=== PATIENT | female | born 1975 | race Hispanic/Latino ===

== ENCOUNTER 2017-04-18 18:26 | Emergency (ER) | payer SELFPAY ==
[~2017-04-18] VITALS: Ht 157.5 cm; Wt 75.9 kg
[2017-04-18 18:43] VITALS: BP 137/88; PULSE 80; RESP 16; O2SAT 99
[2017-04-18 20:42] LABS: BASOPHILS % (AUTO) 0.5 % (0-3); EOSINOPHILS % (AUTO) 1.4 % (0-5); MONOCYTES % (AUTO) 6.2 % (4-12); Mean Corpuscular Hemoglobin 31.1 pg (27.0-35.0); Mean Corpuscular Volume 89.2 fL (81-100); NEUTROPHILS % (AUTO) 61.7 % (40-74); Platelet Count 318 bil/L (150-400)
--- NOTE | 2017-04-18 20:56 | ED.REPORT ---
HPI-General Illness Date of Service Apr 18, 2017 ED Provider: Carl Marin MD A 42 year old female with a history of diabetes presents to the ED complaining of constant, sharp, mid abdominal pain that began two days ago. The pain has been persistent since that point and radiates around to her back. She rates the pain at 7/10. No notable alleviating or exacerbating factors. The pt also complains of fever, nausea, vomiting, burping, decreased appetite and chest pain that she believes is related to heartburn, though she has never had heartburn before. She denies pelvic pain, hematuria, hematochezia, black stools , diarrhea or vaginal discharge. She has taken some Mylanta, which relieved her symptoms somewhat. The pt has not taken her Metformin today because she has not eaten anything. Nursing Notes Stated Complaint: ABDOMINAL PAIN Chief Complaint: Female Abdominal Pain Nursing Notes Reviewed: Yes Allergies: Coded Allergies: No Known Allergies (Verified Allergy, Unknown, 04/18/17) General Time Seen by MD: 20:55 Chief Complaint Abdominal pain Hx Obtained From: Patient Arrived By: Walk-in Sudden in Onset?: No Onset Occurred: 2 days ago Symptom Duration: Since onset Location: : Abdomen Quality: Painful Radiation: : Back Severity: Maximum: Pain level 7 out of 10 Recent Healthcare: No recent doctor visit, No recent hospitalization Similar Sx Previous: No Past Medical History Past Medical History diabetes Past Surgical History unspecified Smoking History Unknown if Ever Smoker Social History Other Social History: Good social support Ambulatory Status Independent Review of Systems decreased appetite burping Full Review of Systems Constitutional: Reports: Fever Respiratory: Denies: Non-productive cough, Shortness of breath Cardiovascular: Reports: Chest pain GI: Reports: Abdominal pain, Nausea, Vomiting, Denies: Bloody/tarry stool, Diarrhea, Hematochezia Female: Denies: Hematuria, Pelvic pain, Vaginal discharge Musculoskeletal: Reports: Back pain Skin: Denies Rash Complete sys rev & neg: except as marked. Physical Exam Constitutional: Well-developed, well-nourished. Not diaphoretic. Head: Normocephalic and atraumatic. Mouth/Throat: Oropharynx is clear and moist. No oropharyngeal exudate. Eyes: EOM are normal. Pupils are equal, round, and reactive to light. Neck: Supple, no tracheal deviation. Cardiovascular: Normal rate, regular rhythm. Equal and intact distal pulses throughout. Pulmonary/Chest: Effort normal and breath sounds normal. No respiratory distress. Abdominal: Soft. No distension. Diffuse mild upper abdominal tenderness to palpation, no rebound or guarding. Bowel sounds present. Musculoskeletal: Range of motion grossly intact, moving all extremities. No edema or tenderness appreciated. Neurological: AOx3. Grossly nonfocal exam. Strength and sensation intact and equal to bilateral upper and lower extremities. Skin: Warm and dry, no rashes or pallor appreciated. Psychiatric: Appropriate mood and affect. Behavior appears normal. Vital Signs Vital Signs Date Time Temp Pulse Resp B/P Pulse Ox O2 Delivery O2 Flow Rate FiO2 04/19/17 00:30 69 20 128/79 99 Room Air 04/19/17 00:22 69 20 128/79 99 Room Air 04/18/17 18:43 37.2 80 16 137/88 99 Room Air Initial VS: Reviewed Interpretation & Diagnostics Lab Results Interpretation Result Diagram: 04/18/17 2030 04/18/17 2030 Test 04/18/17 20:30 04/18/17 21:04 04/18/17 21:44 White Blood Count 8.3th/mm3 (3.8-10.1) Red Blood Count 4.63mil/mm3 (3.90-5.20) Hemoglobin 14.4g/dL (12.0-15.6) Hematocrit 41.3% (35.0-46.0) Mean Corpuscular Volume 89.2fL (81-100) Mean Corpuscular Hemoglobin 31.1pg (27.0-35.0) Mean Corpuscular Hemoglobin Concent 34.9% (32.0-37.0) Red Cell Distribution Width 12.5% (12.3-15.4) Platelet Count 318bil/L (150-400) Neutrophils (%) (Auto) 61.7% (40-74) Lymphocytes (%) (Auto) 30.0% (14-46) Monocytes (%) (Auto) 6.2% (4-12) Eosinophils (%) (Auto) 1.4% (0-5) Basophils (%) (Auto) 0.5% (0-3) Prothrombin Time 9.8sec (8.1-12.5) Prothromb Time International Ratio 0.92ratio Sodium Level 137mEq/L (134-144) Potassium Level 3.9mEq/L (3.5-5.2) Chloride Level 98mEq/L (97-108) Carbon Dioxide Level 24mmol/L (18-29) Blood Urea Nitrogen 7mg/dL (6-24) Creatinine 0.35mg/dL (0.57-1.00) Estimat Glomerular Filtration Rate 295mL/min (>59) Glucose Level 322mg/dL (60-99) Lactic Acid Level 1.3mmol/L (0.4-2.0) Calcium Level 8.7mg/dL (8.5-10.1) Magnesium Level 1.9mg/dL (1.6-2.6) Total Bilirubin 0.4mg/dL (0.0-1.2) Aspartate Amino Transf (AST/SGOT) 15U/L (0-50) Alanine Aminotransferase (ALT/SGPT) 9U/L (0-32) Alkaline Phosphatase 134U/L (25-150) Total Protein 7.4g/dL (6.4-8.4) Albumin 4.0g/dL (3.4-5.0) Lipase 24U/L (13-60) Hold Benites Top Tube Received (Received) Ketones Negative (Negative) Urine Color Yellow (YELLOW) Urine Appearance Clear (CLEAR,HAZY) Urine pH 8.5 (5.0-8.0) Urine Specific Emery 1.010 (1.003-1.035) Urine Protein Negativemg/dL (NEG,TRACE) Urine Glucose (UA) 1000mg/dL (NEGATIVE) Urine Ketones Tracemg/dL (NEGATIVE) Urine Occult Blood Negative (NEGATIVE) Urine Nitrite Negative (NEGATIVE) Urine Bilirubin Negative (NEGATIVE) Urine Urobilinogen Normalmg/dL (NORMAL) Urine Leukocyte Esterase Negative (NEGATIVE) Urine RBC 0-2/hpf (0-2) Urine WBC 0-5/hpf (0-5) Urine Epithelial Cells Few/hpf (NONE-MOD) Urine Crystals None seen (NONE SEEN) Urine Bacteria Few/hpf (NONE-FEW) Urine Hyaline Casts None/lpf (NONE) Urine Granular Casts None seen (NONE SEEN) Urine Waxy Casts None seen (NONE SEEN) Urine Red Blood Cell Casts None seen (NONE SEEN) Urine White Blood Cell Casts None seen (NONE SEEN) Urine Mucus None seen (None Seen) Urine Trichomonas None seen (NONE SEEN) Urine Yeast Few (NONE SEEN) Urinalysis Comment None Urine Culture Reflexed Not indicated Hold Urine Received (Received) CT Abd / Pelvis Interpretation CONCLUSION: 1. Normal appendix. No free air, bowel obstruction, or gross intestinal inflammation. 2. Mild urinary bladder wall thickening is likely related to underdistention. Correlate with urinalysis if clinically warranted. Normal appearance of the kidneys. 3. Fatty liver. Small fat-containing umbilical hernia. Interpretation / Wet Read by: Interpret - Radiologist Re-Eval/Medical Decision Med Decision/Clinical Course In summary, 42-year-old female presenting to the ED for evaluation of abdominal pain, nausea, vomiting. Differential is broad and includes DKA, small bowel obstruction, cholecystitis, appendicitis, reflux, etc. No evidence of DKA with a glucose of 322, no anion gap, serum ketones negative, pH 7.4. She is not having any lower abdominal pain, no pelvic complaints at this time; doubt acute pelvic pathology. Urine test negative. CT scan demonstrates no evidence of appendicitis, bowel obstruction, or other acute intra-abdominal abnormality that would explain her pain at this time. Laboratory results reassuring otherwise, with a CBC and CMP grossly within normal limits with the exception of the above. Given IV fluids, Zofran, Dilaudid and a GI cocktail with improvement in symptoms. Given this, reasonable to discharge home with careful return precautions, PCP follow-up on Thursday. I will prescribe her a short course of Zofran. Patient agreeable to the plan as stated, no further questions. Time of Eval: 23:03 Patient Status: Condition improved Re-Evaluation/Progress Note: Pt rechecked, who is resting. The diagnosis and plan for discharge are discussed. The pt understands and agrees with the plan. All questions are addressed at this time. Counseled Regarding: Diagnosis, Lab results, Need for follow-up, When/why to return to ED Discharge & Departure Primary Impression: Abdominal pain Abdominal location: unspecified location Qualified Code: R10.9 - Unspecified abdominal pain Additional Impressions: Nausea & vomiting Vomiting type: unspecified Vomiting Intractability: non-intractable Qualified Code: R11.2 - Nausea with vomiting, unspecified Hyperglycemia Disposition: Home Discharge Condition All VS Reviewed: Yes Condition: Stable Patient Instructions: Acute Abdominal Pain (ED), Acute Nausea and Vomiting (ED) , Diabetic Hyperglycemia (ED) Additional Instructions: Thank you for allowing us to be a part of your care today. Your CT scan was reassuring and there does not appear to be an acute cause for your symptoms today. However, I would like you to call the [facility] on Thursday to arrange a follow up appointment in 2 to 3 days for reevaluation. Return to the emergency department if you develop any new or worsening symptoms including abdominal pain , intractable vomiting, blood in your stool or fever. Joel por permitirnos ser parte de elaine atencin hoy en da. La exploracin del CT fue tranquilizador y no parece gilberto evangelina aguda causa para wilian sntomas hoy. Sin embargo, me gustara llamar a la giovanni el para arreglar evangelina karen en 2 a 3 roper para reevaluacin de seguimiento. Volver al servicio de urgencias si presenta cualquier sntoma nuevo o que empeora, incluyendo dolor abdominal, v mitos intratables, sylvester en tus heces o fiebre. Referrals: [facility] Scribe Attestation Portions of this note were transcribed by Jono Churchill. I, Dr. Marin personally performed the history, physical exam and medical decision-making; I reviewed and confirmed the accuracy of the information in the transcribed note. Signed by: Valdemar Romero, 04/18/2017 and [id number]. copies to: [facility] Carl Marin MD Apr 18, 2017 20:56 JONO CHURCHILL Apr 18, 2017 22:46 Signed by: Valdemar Romero, 04/18/2017 and [id number]. copies to: [facility] Carl Marin MD Apr 18, 2017 20:56 JONO CHURCHILL Apr 18, 2017 22:46 Carl Marin MD Apr 18, 2017 20:56 JONO CHURCHILL Apr 18, 2017 22:46
[2017-04-18] MEDS ORDERED: 0.9% Sodium Chloride 1,000 ML IV ONE (21:08)
[2017-04-18] MEDS ORDERED: Ondansetron 2 mg/mL 2 mL Inj IVPUSH PRN (21:10)
[2017-04-18] MEDS ORDERED: HYDROmorphone 0.5 mg/0.5 mL iSecure Syringe IVPUSH PRN (21:10)
[2017-04-18 21:12] LABS: Magnesium 1.8 mg/dL (1.6-2.6)
[2017-04-18 21:23] LABS: INR 0.92 ratio
[2017-04-18 21:33] LABS: APPEARANCE,URINE CLEAR (CLEAR,HAZY); COLOR,URINE YELLOW (YELLOW); PH,URINE 8.5 (5.0-8.0)
[2017-04-18 21:34] LABS: OCCULT BLOOD,URINE NEGATIVE (NEGATIVE); UROBILINOGEN,URINE NORMAL (NORMAL); YEAST,URINE FEW (NONE SEEN)
--- NOTE | 2017-04-18 22:55 | ABG ---
DateTimeAnalyzed 22:48:00 -_ pH ____7.402 - pCO2 ___39.9__ -mmHg pO2 ___57.0__ -mmHg HCO3- ___24.3__ -mmol/L ABE ____0.2__ -mmol/L tHb ___13.8__ -g/dL O2Hb ___87.0__ -% COHb ____2.0__ -% MetHb ____0.6__ -% sO2 ___89.3__ -% FIO2 ___21.0__ -% Drawn By LT - Date/Time Notified____ 22:55:00 -_ Notified By LT - Notified Whom DR LEVI - B 760 -mmHg tO2 ___16.9__ -Vol% Juan Alberto test N/A -
[2017-04-18] MEDS ORDERED: Donnatal-Lido-Mylant 1:1:1 15 mL Syringe PO ONE (23:00)
[2017-04-19] MEDS ORDERED: _Ondansetron ODT 4 mg Tablet PO PRN (00:20)
[2017-04-19 00:22] VITALS: BP 128/79; PULSE 69; RESP 20; O2SAT 99
[2017-04-19 00:30] VITALS: BP 128/79; PULSE 69; RESP 20; O2SAT 99
--- NOTE | 2017-04-19 08:08 | DRSVH ---
PROCEDURE: CT ABDOMEN AND PELVIS WITH CONTRAST ([id number]) INDICATIONS: abdominal pain TECHNIQUE: After the administration of intravenous contrast, 5 mm thick sections acquired from the diaphragm to the symphysis. 5 mm coronal and sagittal reformats were acquired. For radiation dose reduction, the following was used: automated exposure control, adjustment of mA and/or kV according to patient siz e. COMPARISON: None. FINDINGS: Image quality: Excellent. ABDOMEN: Lung bases: Lung bases are clear. Heart size is normal. Solid organs: Liver and spleen are normal in size and enhancement. Gallbladder is within normal hernandez its. Biliary system is non dilated. Pancreas enhances normally. No adrenal nodules. Kidneys demon strate normal size and enhancement, without hydronephrosis. Peritoneum and bowel: Bowel loops demonstrate normal wall thickness and caliber. No free fluid or a ir. Normal appendix. Nodes and vessels: No retroperitoneal or mesenteric adenopathy by size criteria. Aorta and inferior vena cava are normal in size. Miscellaneous: A fat containing 23 mm diameter umbilical hernia is present. PELVIS: Genitourinary: Bladder wall thickness is normal. Miscellaneous: No inguinal hernias or adenopathy. Bones: No suspicious bony lesions. No vertebral body compression fractures. IMPRESSION: 1. No acute process. 2. Normal appendix. 3. Fat containing umbilical hernia. 4. Concordant with preliminary interpretation. Dictated by: Moustapha Hoffman M.D. on 04/19/2017 at 8:04 Approved by: Moustapha Hoffman M.D. on 04/19/2017 at 8:06
== END 2017-04-19 00:42 | disposition home or self-care (01) ==
LOC: SED 18:26
DX: E11.65 Type 2 diabetes mellitus with hyperglycemia (principal); R11.2 Nausea with vomiting, unspecified; R10.84 Generalized abdominal pain
CPT/HCPCS: 36415; 74177; 80053; 81000; 81025; 82009; 82375; 82803; 83605; 83690; 83735; 85025; 85610; 96361; 96374; 96375; 99285; J1170; J2405; J7030; Q9967